=== PATIENT | female | born 1990 | race American Indian/Alaskan Native ===

== ENCOUNTER 2020-04-26 05:01 | Emergency (ER) | payer SELFPAY ==
--- NOTE | 2020-04-26 05:40 | Emergency Department Report ---
- General Stated complaint: SOMETHING IN EAR Time Seen by Provider: 04/26/20 05:18 - History of Present Illness complaint: foreign body (in right ear. felt something crawl in there this morningt) Tetanus Up to Date: no Severity: mild Quality: dull Consistency: constant Improves with: none Worsens with: none - Related Data Previous Rx's Medication Instructions Recorded Last Taken Type Neomy/Polymyx B/Hc Otic Susp 4 drops AD TID #1 bottle 04/26/20 Unknown Rx [Cortisporin (Otic) Susp] Abscess Boil HPI - HPI Stated Complaint: SOMETHING IN EAR Time Seen by Provider: 04/26/20 05:18 Home Medications: Previous Rx's Medication Instructions Recorded Last Taken Type Neomy/Polymyx B/Hc Otic Susp 4 drops AD TID #1 bottle 04/26/20 Unknown Rx [Cortisporin (Otic) Susp] ED Review of Systems ROS: Stated complaint: SOMETHING IN EAR Other details as noted in HPI Comment: All other systems reviewed and negative ED Past Medical Hx - Medications Home Medications: Home Medications Medication Instructions Recorded Confirmed Last Taken Type Neomy/Polymyx B/Hc Otic Susp 4 drops AD TID #1 bottle 04/26/20 Unknown Rx [Cortisporin (Otic) Susp] ED Physical Exam - General General appearance: alert, in no apparent distress - Head Head exam: Present: atraumatic, normocephalic - Eye Eye exam: Present: normal appearance - ENT ENT exam: Present: mucous membranes moist, other (Insect to the right ear canal with no evidence of any bleeding a mild erythema is noted. No swelling. No tragal tenderness) - Neck Neck exam: Present: normal inspection - Respiratory Respiratory exam: Present: normal lung sounds bilaterally. Absent: respiratory distress - Cardiovascular Cardiovascular Exam: Present: regular rate, normal rhythm. Absent: systolic murmur, diastolic murmur, rubs, gallop - GI/Abdominal GI/Abdominal exam: Present: soft, normal bowel sounds - Extremities Exam Extremities exam: Present: normal inspection - Back Exam Back exam: Present: normal inspection - Neurological Exam Neurological exam: Present: alert, oriented X3 - Psychiatric Psychiatric exam: Present: normal affect, normal mood - Skin Skin exam: Present: warm, dry, intact, normal color. Absent: rash - Foreign Body Removal Ear Location: ear canal (R) Foreign Body Suspected: insect If Insect Suspected: ear canal inspected-intac Foreign Body Removed: yes Foreign Body Removal Technique: forceps Tympanic Membrane Intact: Yes Patient Tolerated Procedure: well Complications: none Critical care attestation.: If time is entered above; I have spent that time in minutes in the direct care of this critically ill patient, excluding procedure time. ED Disposition Clinical Impression: Foreign body of ear, right Disposition: [id number] TO HOME OR SELFCARE Is pt being admited?: No Does the pt Need Aspirin: No Condition: Stable Instructions: Ear Foreign Body Prescriptions: Neomy/Polymyx B/Hc Otic Susp [Cortisporin (Otic) Susp] 4 drops AD TID #1 bottle Referrals: [facility] [Provider Group] - 3-5 Days
[2020-04-26 06:07] VITALS: BP 110/85
== END 2020-04-26 06:07 | disposition home or self-care (01) ==
LOC: ED 05:01
DX: S00.451A Superficial foreign body of right ear, initial encounter (principal); Z79.899 Other long term (current) drug therapy; W45.8XXA Other foreign body or object entering through skin, initial encounter; Y93.89 Activity, other specified; Y92.89 Other specified places as the place of occurrence of the external cause; Y99.8 Other external cause status
CPT/HCPCS: 99281

== ENCOUNTER 2021-01-14 11:25 | Emergency (ER) | payer MEDICAID ==
[2021-01-14] MEDS ORDERED: IPRATROPIUM/ALBUTEROL SULFATE 3 ML AMPUL.NEB IH ONE (12:10)
--- NOTE | 2021-01-14 12:11 | Emergency Department Report ---
ED Shortness of Breath HPI - General Chief Complaint: Dyspnea/Respdistress Stated Complaint: HEADACHE/BREATHING Time Seen by Provider: 01/14/21 11:57 Source: patient Mode of arrival: Ambulatory Limitations: No Limitations - History of Present Illness Initial Comments: Patient present with multiple complaints and concerns. She had reported shortness of breath. She generalized malaise and fatigue. There is abdominal pain and headache. She states that she just has not recovered from coronavirus infection. She had been diagnosed several weeks ago. There is no history of recent sick contact. She states that she just does not feel well. She does not know why she is not getting any better. She ultimately came here for evaluation. The symptoms have been ongoing. She noticed that the fatigue was worsening. That is why she presented to the ED. The headache is described as global and chronic. It is constant. It is not a pounding or throbbing sensation. It was not maximum intensity at the time of onset. She states her epigastric pain is burning and cramping. There is no radiation. It is not worse with food. The fatigue and weakness just seems to be worse throughout the day. - Related Data Previous Rx's Medication Instructions Recorded Last Taken Type Neomy/Polymyx B/Hc Otic Susp 4 drops AD TID #1 bottle 04/26/20 Unknown Rx [Cortisporin (Otic) Susp] Albuterol Sulfate 5 mg IH 4XD PRN #90 solution 01/14/21 Unknown Rx Albuterol Sulfate [Proair 90 mcg IH 4XD #1 aer.pow.ba 01/14/21 Unknown Rx Respiclick] Famotidine [Pepcid] 20 mg PO BID #60 tablet 01/14/21 Unknown Rx Sucralfate [Carafate] 1 gm PO Q6HR #120 tablet 01/14/21 Unknown Rx Allergies Allergy/AdvReac Type Severity Reaction Status Date / Time No Known Allergies Allergy Unverified 04/26/20 06:03 ED Review of Systems ROS: Stated complaint: HEADACHE/BREATHING Other details as noted in HPI Comment: All other systems reviewed and negative Constitutional: see HPI Eyes: denies: vision change ENT: denies: throat pain Respiratory: denies: orthopnea Cardiovascular: denies: palpitations Endocrine: denies: unexplained weight loss Gastrointestinal: as per HPI Genitourinary: denies: dysuria Musculoskeletal: denies: back pain Skin: denies: rash Neurological: as per HPI Hematological/Lymphatic: denies: easy bruising ED Past Medical Hx - Past Medical History Previous Medical History?: Yes Hx Asthma: Yes - Family History Family history: no significant - Medications Home Medications: Home Medications Medication Instructions Recorded Confirmed Last Taken Type Neomy/Polymyx B/Hc Otic Susp 4 drops AD TID #1 bottle 04/26/20 Unknown Rx [Cortisporin (Otic) Susp] Albuterol Sulfate 5 mg IH 4XD PRN #90 solution 01/14/21 Unknown Rx Albuterol Sulfate [Proair 90 mcg IH 4XD #1 aer.pow.ba 01/14/21 Unknown Rx Respiclick] Famotidine [Pepcid] 20 mg PO BID #60 tablet 01/14/21 Unknown Rx Sucralfate [Carafate] 1 gm PO Q6HR #120 tablet 01/14/21 Unknown Rx ED Physical Exam - General Limitations: No Limitations, Other (Pulse ox was noted and normal) General appearance: alert, in no apparent distress - Head Head exam: Present: atraumatic, normocephalic, normal inspection - Eye Eye exam: Present: normal appearance, EOMI. Absent: scleral icterus - ENT ENT exam: Present: normal exam, normal orophraynx, normal external ear exam - Neck Neck exam: Present: normal inspection. Absent: meningismus - Respiratory Respiratory exam: Present: normal lung sounds bilaterally. Absent: respiratory distress - Cardiovascular Cardiovascular Exam: Present: regular rate, normal rhythm - GI/Abdominal GI/Abdominal exam: Present: soft, tenderness (Mild epigastric). Absent: guarding, rebound, pulsatile mass - Extremities Exam Extremities exam: Present: normal capillary refill. Absent: calf tenderness - Back Exam Back exam: Absent: CVA tenderness (R), CVA tenderness (L) - Neurological Exam Neurological exam: Present: alert, oriented X3, CN II-XII intact, normal gait. Absent: motor sensory deficit - Psychiatric Psychiatric exam: Present: normal affect, normal mood - Skin Skin exam: Present: warm, dry ED Course Vital Signs 01/14/21 01/14/21 01/14/21 11:48 12:41 14:09 Temperature 97.4 F L 98.0 F Pulse Rate 87 93 H Pulse Rate [ 88 Bilateral] Respiratory 18 16 Rate Respiratory 18 Rate [Bilateral ] Blood Pressure 127/75 Blood Pressure 119/85 [Right] O2 Sat by Pulse 100 100 Oximetry - Reevaluation(s) Reevaluation #1: 01/14/21 12:11 DuoNeb was ordered. Reevaluation #2: 01/15/21 05:16 Results have been noted. This is a late entry from her visit yesterday. At this time, patient was feeling better and subsequently discharged. ED Medical Decision Making - Lab Data Result diagrams: 01/14/21 12:59 - Medical Decision Making Patient presented with a myriad constellation of symptoms related to a recent coronavirus infection. There was no new evidence of pneumonia. Patient did not appear to be septic or toxic. She did not have meningitis. She did not have any respiratory distress. There is no peritoneal finding given her abdominal complaint. Patient was treated symptomatically and referred for outpatient evaluation. She certainly does not appear to have hepatitis or pancreatitis. She is not jaundiced and does not have intractable vomiting. Headache does not appear to be related to subarachnoid hemorrhage or sentinel bleed. It was not thunderclap in nature. It was not a maximum intensity at the time of onset. There was no trauma to suggest subdural or epidural hematomas. Critical care attestation.: If time is entered above; I have spent that time in minutes in the direct care of this critically ill patient, excluding procedure time. ED Disposition Clinical Impression: Shortness of breath, Myalgia, Acute epigastric pain Fatigue Qualifiers: Fatigue type: unspecified Qualified Code(s): R53.83 - Other fatigue Disposition: 01 HOME / SELF CARE / HOMELESS Is pt being admited?: No Condition: Stable Instructions: Shortness of Breath, Adult, [id number], Fatigue, Abdominal Pain, Adult, [id number], Musculoskeletal Pain Additional Instructions: Continue to use Tylenol for fever. Have a bland diet. Follow-up with your regular doctor for recheck and further evaluation. Continue home medication. Prescriptions: Albuterol Sulfate 5 mg IH 4XD PRN #90 solution PRN Reason: Wheezing Sucralfate [Carafate] 1 gm PO Q6HR #120 tablet Famotidine [Pepcid] 20 mg PO BID #60 tablet Albuterol Sulfate [Proair Respiclick] 90 mcg IH 4XD #1 aer.pow.ba Referrals: PRIMARY CARE, [Primary Care Provider] - 3-5 Days Forms: Work/School Release Form(ED)
[2021-01-14 13:11] LABS: Hematocrit 43.6 % (30.3-42.9); Hemoglobin 14.9 gm/dl (10.1-14.3); Mean Corpuscular HGB Conc 34 % (30-34); Mean Corpuscular Volume 85 fl (79-97); Platelet Count 287 K/mm3 (140-440); Red Blood Count 5.11 M/mm3 (3.65-5.03); Red Cell Distribution Width 13.3 % (13.2-15.2)
[2021-01-14 14:10] VITALS: BP 119/85
--- NOTE | 2021-01-14 14:51 | XRay Report ---
CHEST 2 VIEWS INDICATION / CLINICAL INFORMATION: cough. COMPARISON: None available. FINDINGS: SUPPORT DEVICES: None. HEART / MEDIASTINUM: No significant abnormality. LUNGS / PLEURA: No significant pulmonary or pleural abnormality. No pneumothorax. ADDITIONAL FINDINGS: No significant additional findings. IMPRESSION: 1. No acute findings. Signer Name: Raz Flynn MD Signed: 01/14/2021 2:47 PM Workstation Name: [id number]
== END 2021-01-14 14:08 | disposition home or self-care (01) ==
LOC: ED 11:25
DX: R10.13 Epigastric pain (principal); R06.02 Shortness of breath; R51.9 Headache, unspecified; M79.10 Myalgia, unspecified site; R53.83 Other fatigue; J45.909 Unspecified asthma, uncomplicated
CPT/HCPCS: 36415; 71046; 85027; 94640; 94644; 99284